=== PATIENT | female | born 1995 | race Caucasian/White ===

== ENCOUNTER 2019-01-24 00:07 | Outpatient (CLI) | payer OTHER | END 2019-01-24 00:08 | disposition critical access hospital (66) | LOC: EMS 00:07 | PROVIDERS: ATTEND Surgery | DX: R00.0 Tachycardia, unspecified (principal) | CPT/HCPCS: A0425; A0429 ==

== ENCOUNTER 2019-01-24 00:29 | Emergency (ER) | payer OTHER ==
--- NOTE | 2019-01-24 00:44 | ED Physician Documentation ---
History of Present Illness - Stated complaint Stated Complaint: N/V - History obtained from History obtained from: Patient, EMS - History of Present Illness Timing: How many hours ago (2) Pain level max: 0 Pain level now: 0 Improved by: nothing Worsened by: no exacerbating factors - Additonal information Additional information: BIBA. patient used THC oil to make frosting which was then consumed on brownies (no THC in the brownies).she developed dizziness, dry mouth, nausea, mild dysphoria. symtpoms have improved slightly en route to ED. she has a friend who is also registered in ED with same presentation Review of Systems Constitutional: reports: Reviewed and negative Eyes: reports: Reviewed and negative Cardiac: reports: Palpitations Respiratory: reports: Reviewed and negative GI: reports: Nausea. denies: Abdominal Pain, Vomiting Neurologic: reports: Generalized weakness. denies: Focal weakness, Numbness, Confused, Altered mental status, Headache PD PAST MEDICAL HISTORY - Past Medical History Past Medical History: No - Past Surgical History Past Surgical History: No - Allergies Allergies/Adverse Reactions: Allergies Allergy/AdvReac Type Severity Reaction Status Date / Time Penicillins Allergy Unknown Verified 01/24/19 01:04 - Social History Does the pt drink ETOH?: Yes ETOH Use: Wine PD ED PE NORMAL - Vitals Vital signs reviewed: Yes - General General: Alert and oriented X 3, No acute distress, Well developed/nourished - HEENT HEENT: PERRL, EOMI - Neck Neck: Supple, no meningeal sign - Cardiac Cardiac: No murmur - Respiratory Respiratory: No respiratory distress, Clear bilaterally - Abdomen Abdomen: Normal bowel sounds, Soft, Non tender - Neuro Neuro: Alert and oriented X 3, 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 she says this was her first experience with THC and plans on never using marijuana or THC again Departure - Departure Disposition: Home, Self Care Clinical Impression: Marijuana intoxication Condition: Good Instructions: ED Marijuana Abuse Discharge Date/Time: 01/24/19 07:25
[2019-01-24] MEDS ORDERED: ONDANSETRON ODT 4 MG TABLET TL STA (06:12)
[2019-01-24 06:49] VITALS: BP 112/63
== END 2019-01-24 07:25 | disposition home or self-care (01) ==
LOC: ED 00:29
DX: F12.929 Cannabis use, unspecified with intoxication, unspecified (principal)
CPT/HCPCS: 99282; 99283; Q0162